=== PATIENT | female | born 1995 | race Caucasian/White ===

== ENCOUNTER → 2016-06-17 | Outpatient (CLI) | payer OTHER | LOC: COL.RAD 10:44 | DX: M25.561 Pain in right knee (principal) ==

== ENCOUNTER 2017-05-05 15:00 | Day surgery (SDC) | payer OTHER ==
[~2017-05-05] VITALS: Ht 182.9 cm; Wt 128.4 kg
[2017-05-05 16:25] LABS: BASO % 0.3 % (0.0-2.0); EOS # 0.1 (0.0-0.7); EOS % 1.2 % (0-4.0); GRAN # 6.1 (1.4-6.5); GRAN % 65.6 % (42.2-75.2); HEMATOCRIT 42.2 % (37.0-47.0); HEMOGLOBIN 14.6 g/dl (12.5-16.0); LYMPH # 2.7 (1.2-3.4); LYMPH % 28.7 % (20.0-51.0); MEAN CELL VOLUME 86 fl (80.0-100.0); MEAN CORPUSCULAR HEMOGLOBIN 30 pg (27.0-31.0); MEAN CORPUSCULAR HGB CONC 35 g/dl (33.0-37.0); MEAN PLATELET VOLUME 10.8 fl (7.4-10.4); MONO # 0.4 (0.1-0.6); MONO % 3.9 % (1.7-9.3); PLATELET COUNT 302 K/mm3 (130-400); RED BLOOD COUNT 4.92 M/mm3 (4.10-5.30); REDCELL DISTRIBUTION WIDTH-CV 12.6 % (11.5-14.5)
[2017-05-05 16:34] LABS: ALANINE AMINOTRANSFERASE 37 U/L (9-52); ALBUMIN 4.9 gm/dL (3.5-5.0); ALKALINE PHOSPHATASE 77 U/L (50-136); ANION GAP 11 mmol/L (7-16); AST,SGOT 27 U/L (15-37); BILIRUBIN,TOTAL 0.6 mg/dL (0.0-1.0); BLOOD UREA NITROGEN 8 mg/dL (7-17); CALCIUM 9.7 mg/dL (8.4-10.2); CARBON DIOXIDE 22 mmol/L (22-30); CHLORIDE 104 mmol/L (98-107); CREATININE, serum 0.75 mg/dL (0.52-1.25); GLUCOSE 97 mg/dL (74-106); LIPASE 62 U/L (23-300); SODIUM 138 mmol/L (137-145); TOTAL PROTEIN 8.3 gm/dL (6.4-8.2)
[2017-05-05 16:36] LABS: C-REACTIVE PROTEIN < 0.5 mg/dL (0.0-0.9)
[2017-05-05 17:09] LABS: COLLECTION METHOD CLEAN CATCH
[2017-05-05 17:25] LABS: MUCOUS Present /lpf; PH 5 (5-8); SQUAMOUS EPITHELIAL None Seen /hpf; URINE APPEARANCE Clear; URINE BACTERIA None Seen /hpf; URINE BILIRUBIN Negative (NEGATIVE); URINE BLOOD 1+ (NEGATIVE); URINE COLOR Straw; URINE GLUCOSE Negative (NEGATIVE); URINE KETONE Negative (NEGATIVE); URINE LEUKOCYTE ESTERASE Negative (NEGATIVE); URINE NITRATE Negative (NEGATIVE); URINE PROTEIN(semi-quant) Negative (NEGATIVE); URINE RBC 0-2 /hpf; URINE UROBILINOGEN Negative (NEGATIVE)
[2017-05-05] MEDS ORDERED: PROAIR HFA0.09 MG/AC INH (19:04)
[2017-05-05] MEDS ORDERED: ALBUTEROL1.25 MG/3 INH (19:05)
[2017-05-05 21:05] VITALS: BP 136/68; PULSE 73; TEMP 98.1
[2017-05-05 21:20] VITALS: BP 126/65; PULSE 93
[2017-05-05 21:37] VITALS: BP 136/68; PULSE 81; TEMP 98.4
[2017-05-05 21:50] VITALS: BP 127/69; PULSE 84; TEMP 98.2
[2017-05-05 22:20] VITALS: BP 128/64; PULSE 82
[2017-05-05 22:50] VITALS: BP 128/65; PULSE 97
[2017-05-06 00:21] VITALS: BP 118/49; PULSE 76; TEMP 98.2
[2017-05-06 04:28] VITALS: BP 113/45; PULSE 78; TEMP 98.3
[2017-05-06] MEDS ORDERED: NORCO 325 MG-51 TAB PO (09:20)
[2017-05-06 09:32] VITALS: BP 112/49; PULSE 66; TEMP 98.1
== END 2017-05-06 10:21 | disposition home or self-care (01) ==
LOC: COL.ER 15:00 → SDCO 18:41 → SURG 21:07 → SDCO 05-06 10:21
PROVIDERS: Family Medicine
DX: K35.80 Unspecified acute appendicitis (principal); Z87.891 Personal history of nicotine dependence; J45.909 Unspecified asthma, uncomplicated; F12.90 Cannabis use, unspecified, uncomplicated; E66.9 Obesity, unspecified; E28.2 Polycystic ovarian syndrome
CPT/HCPCS: OP; J0171; J0330; J1100; J1170; J1885; J2405; J2543; J2550; J2704; J2710; J2765; J3010; J7030; J7050; J7120; Q9967

== ENCOUNTER 2017-10-22 03:09 | Emergency (ER) | payer OTHER ==
[~2017-10-22] VITALS: Ht 182.9 cm; Wt 125.0 kg
[~2017-10-22 03:09] MED LIST: ALBUTEROL1.25 MG/3 INH; NORCO 325 MG-51 TAB PO; PROAIR HFA0.09 MG/AC INH
[2017-10-22 03:12] VITALS: TEMP 98.9
[2017-10-22 03:41] LABS: COLLECTION METHOD CLEAN CATCH
[2017-10-22 03:48] LABS: BASO # 0.1 (0.0-0.2); BASO % 0.6 % (0.0-2.0); EOS # 0.2 (0.0-0.7); EOS % 2.4 % (0-4.0); GRAN # 4.1 (1.4-6.5); HEMOGLOBIN 14.1 g/dl (12.5-16.0); LYMPH % 45.5 % (20.0-51.0); MEAN CELL VOLUME 86 fl (80.0-100.0); MEAN CORPUSCULAR HEMOGLOBIN 30 pg (27.0-31.0); MEAN CORPUSCULAR HGB CONC 34 g/dl (33.0-37.0); MEAN PLATELET VOLUME 10.5 fl (7.4-10.4); MONO # 0.5 (0.1-0.6); MONO % 5.2 % (1.7-9.3); PLATELET COUNT 309 K/mm3 (130-400); RED BLOOD COUNT 4.75 M/mm3 (4.10-5.30); REDCELL DISTRIBUTION WIDTH-CV 12.4 % (11.5-14.5)
[2017-10-22 03:54] LABS: ALBUMIN 4.6 gm/dL (3.5-5.0); BILIRUBIN,TOTAL 0.4 mg/dL (0.0-1.0); C-REACTIVE PROTEIN 0.5 mg/dL (0.0-0.9); CALCIUM 10.6 mg/dL (8.4-10.2); CREATININE, serum 0.75 mg/dL (0.52-1.25); TOTAL PROTEIN 8.1 gm/dL (6.4-8.2)
[2017-10-22 03:58] LABS: MUCOUS Present /lpf; PH 5 (5-8); SQUAMOUS EPITHELIAL 0-2 /hpf; URINE APPEARANCE Clear; URINE BACTERIA None Seen /hpf; URINE BILIRUBIN Negative (NEGATIVE); URINE BLOOD 3+ (NEGATIVE); URINE COLOR Yellow; URINE GLUCOSE Negative (NEGATIVE); URINE KETONE Negative (NEGATIVE); URINE LEUKOCYTE ESTERASE Negative (NEGATIVE); URINE NITRATE Negative (NEGATIVE); URINE PROTEIN(semi-quant) 1+ (NEGATIVE); URINE RBC >50 /hpf; URINE UROBILINOGEN Negative (NEGATIVE)
[2017-10-22] MEDS ORDERED: ULTRAM 50MG TAB50 MG PO (04:16)
[2017-10-22] MEDS ORDERED: ZOFRAN 4MG T4 MG/TAB PO (05:19)
[2017-10-22] MEDS ORDERED: PERCOCET 325 MG1 TA2 PO (05:19)
[2017-10-22 06:02] VITALS: BP 128/83; PULSE 94
== END 2017-10-22 06:02 | disposition home or self-care (01) ==
LOC: COL.ER 03:09
PROVIDERS: Emergency Medicine
DX: R10.31 Right lower quadrant pain (principal); R10.32 Left lower quadrant pain; J45.909 Unspecified asthma, uncomplicated; E66.9 Obesity, unspecified; Z68.37 Body mass index [BMI] 37.0-37.9, adult; Z90.49 Acquired absence of other specified parts of digestive tract; Z87.42 Personal history of other diseases of the female genital tract; Z87.891 Personal history of nicotine dependence
CPT/HCPCS: J2270; J2405; J7030